=== PATIENT | female | born 2000 | race Hispanic/Latino ===

== ENCOUNTER → 2023-09-27 | Emergency (ER) | payer OTHER ==
--- NOTE | 2023-09-27 18:50 | ER ---
Nurse's Notes [facility] Name: Cathy Wall Age: 23 yrs Sex: Female : 2000 Arrival Date: 09/27/2023 Time: 18:25 Bed IW3 Private MD: Diagnosis: Otitis externa in other diseases classified elsewhere, right ear Presentation: 09/26 18:33 Chief complaint: Patient states: "I poked my right ear with a Q-tip 3 days ago. It's mb9 throbbing, can't eat, and my body aches.". Coronavirus screen: At this time, the client does not indicate any symptoms associated with coronavirus-19. Ebola Screen: No symptoms or risks identified at this time. Initial Sepsis Screen: Does the patient meet any 2 criteria? No. Patient's initial sepsis screen is negative. Does the patient have a suspected source of infection? No. Patient's initial sepsis screen is negative. Risk Assessment: Do you want to hurt yourself or someone else? Patient reports no desire to harm self or others. Onset of symptoms was September 27, 2023. 18:33 Method Of Arrival: Ambulatory mb9 18:33 Acuity: TERENCE 5 mb9 Triage Assessment: 18:35 General: Appears in no apparent distress. Behavior is calm, cooperative. Pain: mb9 Complains of pain in right ear and entire body Quality of pain is described as sharp, throbbing. EENT: Ear canal clear on right ear. Neuro: Penny Agitation-Sedation Scale (RASS): 0 - Alert and Calm Level of Consciousness is awake, alert, obeys commands, Oriented to person, place, time, situation, Appropriate for age. Cardiovascular: Patient's skin is warm and dry. Respiratory: Airway is patent Respiratory effort is even, unlabored, Respiratory pattern is regular, symmetrical. GI: No signs and/or symptoms were reported involving the gastrointestinal system. : No signs and/or symptoms were reported regarding the genitourinary system. Derm: Skin is pink, warm \\T\\ dry. Musculoskeletal: Range of motion: intact in all extremities. Historical: - Allergies: 18:35 PENICILLINS; mb9 - Home Meds: 18:35 None [Active]; mb9 - PMHx: 18:35 None; mb9 - PSHx: 18:35 ACL repair; mb9 - Immunization history:: Adult Immunizations up to date. - Social history:: Smoking status: Reported history of juuling and/or vaping. Screenin:47 [facility] ED Fall Risk Assessment (Adult) History of falling in the last 3 months, vc1 including since admission No falls in past 3 months (0 pts) Confusion or Disorientation No (0 pts) Intoxicated or Sedated No (0 pts) Impaired Gait No (0 pts) Mobility Assist Device Used No (0 pt) Altered Elimination No (0 pt) Score/Fall Risk Level 0 - 2 = Low Risk Oriented to surroundings, Maintained a safe environment, Educated pt \\T\\ family on fall prevention, incl call for assistance when getting out of bed. Abuse screen: Denies threats or abuse. Nutritional screening: No deficits noted. Tuberculosis screening: No symptoms or risk factors identified. Assessment: 19:46 Reassessment: No changes from previously documented assessment. Patient and/or family vc1 updated on plan of care and expected duration. Pain level reassessed. Patient is alert, oriented x 3, equal unlabored respirations, skin warm/dry/pink. Vital Signs: 18:33 BP 142 / 74; Pulse 95; Resp 18; Temp 98; Pulse Ox 100% on R/A; Weight 91.17 kg; Height mb9 5 ft. 4 in. ; Pain 7/10; 19:54 BP 125 / 89; Pulse 74; Resp 18; Pulse Ox 100% on R/A; mb9 18:33 Body Mass Index 34.50 (91.17 kg, 162.56 cm) mb9 18:33 Pain Scale: Adult mb9 ED Course: 18:31 Patient arrived in ED. mg5 18:33 Arm band placed on. mb9 18:34 Obey Gaytan PA is PHCP. cp 18:34 Obey Poole MD is Attending Physician. cp 18:35 Triage completed. mb9 18:49 Yuliya Grover MD is Referral Physician. cp 19:47 Patient has correct armband on for positive identification. vc1 19:47 No provider procedures requiring assistance completed. Patient did not have IV access vc1 during this emergency room visit. 19:54 Aliza Ramirez, MANASA is Primary Nurse. mb9 Administered Medications: No medications were administered Medication: 19:47 VIS not applicable for this client. vc1 Outcome: 18:49 Discharge ordered by . cp 19:54 Discharged to home ambulatory, mb9 19:54 Condition: stable 19:54 Discharge instructions given to patient, Instructed on discharge instructions, follow up and referral plans. Demonstrated understanding of instructions, follow-up care, medications, Prescriptions given X 2, 19:55 Patient left the ED. vc1 Signatures: Obey Gaytan PA PA cp Calcote, Vanessa, RN RN vc1 Aliza Ramirez RN RN mb9 Theresa Hickey mg5 Corrections: (The following items were deleted from the chart) 19:54 18:33 Acuity: TERENCE 4 mb9 mb9
[2023-09-27 20:06] VITALS: BP 125/89; TEMP 98; O2SAT 100
--- NOTE | 2023-09-28 19:55 | EDPHYS ---
Physician Documentation [facility] Name: Cathy Wall Age: 23 yrs Sex: Female : 2000 Arrival Date: 09/27/2023 Time: 18:25 Bed IW3 Private MD: ED Physician Obey Poole HPI: 09/26 18:40 This 23 yrs old Female presents to ER via Ambulatory with complaints of Ear cp Pain. 18:40 The patient presents with pain, that is acute, tenderness. The complaints affect the cp right ear. Onset: The symptoms/episode began/occurred 3 day(s) ago. Associated signs and symptoms: Pertinent positives: body aches. 18:40 Patient reports accidentally sticking q-tip too far into ear. cp Historical: - Allergies: 18:35 PENICILLINS; mb9 - Home Meds: 18:35 None [Active]; mb9 - PMHx: 18:35 None; mb9 - PSHx: 18:35 ACL repair; mb9 - Immunization history:: Adult Immunizations up to date. - Social history:: Smoking status: Reported history of juuling and/or vaping. ROS: 18:45 Constitutional: Positive for body aches, Negative for chills, fever, poor PO intake, cp 18:45 Eyes: Negative for injury, pain, redness, and discharge, cp 18:45 ENT: Positive for ear pain, Negative for drainage from ear(s), sore throat, difficulty swallowing, difficulty handling secretions, 18:45 Respiratory: Negative for cough, shortness of breath, wheezing, 18:45 Abdomen/GI: Negative for abdominal pain, vomiting, diarrhea, constipation, 18:45 Neuro: Negative for altered mental status, dizziness, headache, weakness, 18:45 All other systems are negative, Exam: 18:45 Head/Face: Normocephalic, atraumatic. cp 18:45 Constitutional: The patient appears in no acute distress, alert, awake, non-toxic, well developed, well nourished, 18:45 Eyes: Periorbital structures: appear normal, Conjunctiva: normal, no exudate, no injection, Sclera: no appreciated abnormality, Lids and lashes: appear normal, bilaterally, 18:45 ENT: External ear(s): pain with movement, that is moderate, of the right ear canal, Ear canal(s): purulent discharge, in the right canal, mild, swelling, that is moderate, of the right canal, TM's: not visable, discharge, swellling, Examination of the other ear shows no obvious abnormality, Mouth: Lips: moist, Oral mucosa: pink and intact, moist, Posterior pharynx: Airway: no evidence of obstruction, patent, 18:45 Neck: ROM/movement: is normal, is supple, without pain, no range of motions limitations, 18:45 Chest/axilla: Inspection: normal, 18:45 Cardiovascular: Rate: normal, 18:45 Respiratory: the patient does not display signs of respiratory distress, Respirations: normal, no use of accessory muscles, no retractions, labored breathing, is not present, Breath sounds: are clear throughout, no decreased breath sounds, no stridor, no wheezing, 18:45 Abdomen/GI: Exam negative for discomfort, distension, guarding, 18:45 Skin: no rash present. Vital Signs: 18:33 BP 142 / 74; Pulse 95; Resp 18; Temp 98; Pulse Ox 100% on R/A; Weight 91.17 kg; Height mb9 5 ft. 4 in. ; Pain 7/10; 19:54 BP 125 / 89; Pulse 74; Resp 18; Pulse Ox 100% on R/A; mb9 18:33 Body Mass Index 34.50 (91.17 kg, 162.56 cm) mb9 18:33 Pain Scale: Adult mb9 MDM: 18:34 Patient medically screened. cp 18:40 Differential diagnosis: otitis media, otitis externa, ruptured TM, foreign body, acute cp otalgia, cerumen impaction, barotrauma . 18:48 Data reviewed: vital signs, nurses notes, and as a result, I will discharge patient. cp 18:48 Counseling: I had a detailed discussion with the patient and/or guardian regarding the cp historical points, exam findings, and any diagnostic results supporting the discharge/admit diagnosis, to return to the emergency department if symptoms worsen or persist or if there are any questions or concerns that arise at home. Administered Medications: No medications were administered Disposition Summary: 09/27/23 18:49 Discharge Ordered Notes: Location: Home cp Problem: new cp Symptoms: have improved cp Condition: Stable cp Diagnosis - Otitis externa in other diseases classified elsewhere, right ear cp Followup: cp - With: Yuliya Grover MD - When: 2 - 3 days - Reason: Recheck today's complaints Discharge Instructions: - Discharge Summary Sheet cp - Otitis Externa cp Forms: - Medication Reconciliation Form cp - Thank You Letter cp - Antibiotic Education cp - Prescription Opioid Use cp - Patient Portal Instructions cp - Leadership Thank You Letter cp Prescriptions: - Ibuprofen 800 mg Oral Tablet - take 1 tablet ORAL route every 8 hours As needed take with food; 30 tablet; cp Refills: 0, Product Selection Permitted - Ciprodex 0.3-0.1 % Otic drops, suspension - instill 4 drops OTIC route every 12 hours for 7 days , for ears ONLY; 1 unit; cp Refills: 0, Product Selection Permitted Signatures: Obey Gaytan PA PA cp Breneman, Mary Beth, RN RN mb9
== END ==
LOC: ER 18:25
DX: H60.8X1 Other otitis externa, right ear (principal); Z88.0 Allergy status to penicillin
CPT/HCPCS: 99283

== ENCOUNTER 2023-10-13 16:59 | Emergency (ER) | payer OTHER ==
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
[2023-10-13 19:07] LABS: Specific Gravity 1.023 (1.005-1.030)
[2023-10-13 19:17] LABS: Specific Gravity 1.023 (1.005-1.030); Sqamous Epithelial 20-50 /HPF (None Seen); Urine Bacteria >50 /HPF (<20); Urine Bilirubin NEGATIVE (Negative); Urine Blood Trace (Negative); Urine Clarity Extremely Turbid (Clear); Urine Color Yellow (Yellow); Urine Culture Reflex Order NOT NEEDED; Urine Glucose NEGATIVE (Negative); Urine Ketones NEGATIVE (Negative); Urine Micro Reflex YN NO BILL MICROSCOPIC; Urine Mucus 4+ /HPF (None Seen); Urine Nitrite 2+ (Negative); Urine Protein 1+ (Negative); Urine Urobilinogen Normal (Normal); Urine WBC >50 /HPF (<5); Urine pH 7.5 (5.0-7.0)
[2023-10-13] MEDS ORDERED: CEFTRIAXONE 1000 MG/VIAL ONE (19:58)
[2023-10-13] MEDS ORDERED: LIDOCAINE 1% MPF 5 ML VIAL ONE (19:58)
[2023-10-13] MEDS ORDERED: DOXYCYCLINE 100 MG CAP PO ONE (19:58)
[2023-10-13] MEDS ORDERED: AZITHROMYCIN 250 MG TAB ONE (19:59)
[2023-10-14 03:34] VITALS: BP 121/78; TEMP 97.8; O2SAT 100
== END 2023-10-13 21:01 | disposition home or self-care (01) ==
LOC: ER 16:59
DX: Z04.71 Encounter for examination and observation following alleged adult physical abuse (principal); H11.32 Conjunctival hemorrhage, left eye; S00.83XA Contusion of other part of head, initial encounter; M25.552 Pain in left hip
CPT/HCPCS: 81001; 81025; 70486; 76377; 73502; 96372; 99284; J2001; J0696

== ENCOUNTER 2024-07-10 13:58 | Emergency (ER) | payer BC, OTHER ==
--- OUTSIDE RECORDS SUMMARY | 2024-07-10 14:02 | XMS REPORT | Continuity of Care Document ---
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 Aryan [facility] HB ABO GROUPING 2024-06-23 23:07:00 Aryan Obey Silva [facility] RHO (D) IMMUNE GLOBULIN 2024-06-23 23:07:00 Lucille Reddy [facility] HIV 1/2 AG-AB WITH REFLEX 2024-06-23 23:07:00 Obey Baeza [facility] SYPHILIS IGG/IGM 2024-06-23 23:07:00 Aryan Obey Mccarthy [facility] POCT URINALYSIS W/O SPECIFIC GRAVITY 2024-06-18 20:06:00 Alondra Cardoza [facility] POCT URINALYSIS W/O SPECIFIC GRAVITY 2024-06-11 19:53:00 Alondra Cardoza [facility] POCT URINALYSIS W/O SPECIFIC GRAVITY 2024-06-04 20:40:00 Alondra Cardoza [facility] POCT URINALYSIS W/O SPECIFIC GRAVITY 2024-05-28 20:53:00 Alondra Cardoza [facility] SECOND AND THIRD TRIMESTER ULTRASOUND 2024-05-28 19:31:00 Alondra Cardoza [facility] RSV, BIVALENT, PROTEIN SUBUNIT RSVPREF, DILUENT RECONSTITUTED, 0.5 ML, PF, (ABRYSVO) 2024-05-13 20:45:29 Alondra Cardoza [facility] POCT URINALYSIS W/O SPECIFIC GRAVITY 2024-05-13 20:29:00 Alondra Cardoza [facility] POCT URINALYSIS W/O SPECIFIC GRAVITY 2024-04-29 21:20:00 Alondra Cardoza [facility] POCT URINALYSIS W/O SPECIFIC GRAVITY 2024-04-15 21:15:00 Alondra Cardoza [facility] TDAP VACCINE, >11 YRS, IM 2024-04-02 18:13:49 Alondra Cardoza [facility] FLU VACC (), 6 MO-64 YRS, .5ML, IM, TIV (FLUCELVAX) 2024-04-02 18:13:49 Alondra Cardoza [facility] POCT URINALYSIS W/O SPECIFIC GRAVITY 2024-04-02 17:56:00 Alondra Cardoza [facility] POCT URINALYSIS W/O SPECIFIC GRAVITY 2024-03-12 18:09:00 Alondra Cardoza [facility] POCT URINALYSIS W/O SPECIFIC GRAVITY 2023-10-29 19:49:00 Toribio Vaz [facility] POCT TEST 2023-10-29 19:48:00 Guillermo Vaz i [facility] Encounters Start Date/Time End Date/Time Encounter Type Admission Type Attending [facility] Facility Care Department Encounter ID Source 2024-07-06 14:58:00 2024-07-08 18:16:00 Inpatient P ERICK KOHLI, ERICK [facility] MEKHI [id number] [facility] 2024-07-06 14:58:00 2024-07-08 18:16:00 Hospital Encounter KongCharu ontiveros Rocael Erick Zebgabrielle [facility] ([facility]) 1.2.840.114 350.1.13.10 4.2.7.2.[id number] [facility] 2024-07-07 02:25:00 2024-07-07 04:03:00 Surgery Erick Kohli Annpriti [facility] ([facility]) 1.2.840.114 350.1.13.10 4.2.7.2.[id number] [facility] 2024-07-03 10:30:00 2024-07-03 11:16:21 Outpatient R ALONDRA CARDOZA [facility] [id number] [facility] 2024-07-03 10:30:00 2024-07-03 11:16:21 Nurse Visit [facility] Nurse Vst, Fp Nrpt Pills Class Alondra Cardoza [facility] Nurse Vst, Fp Nrpt Pills Class [facility] PHOSPHORUS PROCESSING SUPERVISOR [facility] MATERNAL & CHILD [facility] 1.2.840.114 350.1.13.10 4.2.7.2.[id number] [facility] 2024-06-23 16:12:00 2024-06-28 12:46:00 Inpatient P JUNO DIXON [facility] [id number] [facility] 2024-06-23 16:12:00 2024-06-28 12:46:00 Hospital Encounter Obey BaezaUrsulais Telly [facility] ([facility]) 1.2.840.114 350.1.13.10 4.2.7.2.[id number] [facility] 2024-06-25 18:50:00 2024-06-25 20:45:00 Surgery Garygabriel Jenn [facility] ([facility]) 1.2.840.114 350.1.13.10 4.2.7.2.[id number] [facility] 2024-06-24 15:55:00 2024-06-25 16:16:00 Anesthesia Event Bhaskar Grace Husong [facility] ([facility]) 1.2.840.114 350.1.13.10 4.2.7.2.[id number] [facility] 2024-06-22 00:00:00 2024-06-24 12:49:03 Refill Alondra Cardoza [facility] PHOSPHORUS PROCESSING SUPERVISOR [facility] MATERNAL & CHILD [facility] 1.20.114 350.1.13.10 4.2.7.2.[id number] [facility] 2024-06-18 13:45:00 2024-06-18 14:30:15 Outpatient R ALONDRA CARDOZA [facility] [id number] [facility] 2024-06-18 13:45:00 2024-06-18 14:30:15 Routine Visit Alondra Cardoza [facility] PHOSPHORUS PROCESSING SUPERVISOR [facility] MATERNAL & CHILD [facility] 1.2840.114 350.1.13.10 4.2.7.2.[id number] [facility] 2024-06-11 14:00:00 2024-06-11 14:25:29 Outpatient R ALONDRA CARDOZA [facility] [id number] [facility] 2024-06-11 14:00:00 2024-06-11 14:15:00 Routine Visit Alondra Cardoza [facility] PHOSPHORUS PROCESSING SUPERVISOR [facility] & CHILD [facility] 1.2.840.114 350.1.13.10 4.2.7.2.[id number] [facility] 2024-06-04 13:45:00 2024-06-04 14:29:16 Outpatient R NAYELI PENN [facility] [id number] [facility] 2024-06-04 13:45:00 2024-06-04 14:29:16 Routine Visit 2, [facility] Temp Provider Alondra Cardoza Josephine 2, [facility] Temp Provider [facility] PHOSPHORUS PROCESSING SUPERVISOR [facility] MATERNAL & CHILD [facility] 1.2.840.114 350.1.13.10 4.2.7.2.[id number] [facility] 2024-06-03 00:00:00 2024-06-03 17:56:31 Nurse Triage Yusra Reina Melissa N [facility] ([facility]) 1.2.840.114 350.1.13.10 4.2.7.2.[id number] [facility] 2024-05-29 00:00:00 2024-05-29 07:03:13 Abstract Alondra Cardoza [facility] PHOSPHORUS PROCESSING SUPERVISOR [facility] & CHILD [facility] 1.2.840.114 350.1.13.10 4.2.7.2.[id number] [facility] 2024-05-28 14:45:00 2024-05-28 15:55:03 Routine Visit Alondra Cardoza [facility] PHOSPHORUS PROCESSING SUPERVISOR [facility] MATERNAL & CHILD [facility] 1.840.114 350.1.13.10 4.2.7.2.[id number] [facility] 2024-05-28 13:30:00 2024-05-28 13:31:45 Outpatient R ELIO FABIANRAQUELMINA HERNANDEZ [facility] [id number] [facility] 2024-05-28 13:30:00 2024-05-28 13:31:45 Hose Seamer Visit 1, [facility] Room Mina Greenwood [facility] PHOSPHORUS PROCESSING SUPERVISOR [facility] MATERNAL & CHILD [facility] 1.840.114 350.1.13.10 4.2.7.2.[id number] [facility] 2024-05-23 14:30:00 2024-05-23 14:30:00 Outpatient R [facility] [id number] [facility] 2024-05-13 14:00:00 2024-05-13 15:02:51 Outpatient R ALONDRA CARDOZA [facility] [id number] [facility] 2024-05-13 14:00:00 2024-05-13 15:02:51 Routine Visit Alondra Cardoza [facility] PHOSPHORUS PROCESSING SUPERVISOR [facility] MATERNAL & CHILD [facility] 1.840.114 350.1.13.10 4.2.7.2.[id number] [facility] 2024-04-29 16:15:00 2024-04-29 16:50:46 Outpatient R ALONDRA CARDOZA [facility] [id number] [facility] 2024-04-29 16:15:00 2024-04-29 16:30:00 Routine Visit Alondra Cardoza [facility] PHOSPHORUS PROCESSING SUPERVISOR [facility] MATERNAL & CHILD [facility] 1.840.114 350.1.13.10 4.2.7.2.[id number] [facility] 2024-04-15 16:15:00 2024-04-15 16:37:49 Routine Visit Alondra Cardoza [facility] PHOSPHORUS PROCESSING SUPERVISOR [facility] & CHILD [facility] 1..840.114 350.1.13.10 4.2.7.2.[id number] [facility] 2024-04-15 16:15:00 2024-04-15 16:37:49 Outpatient R ALONDRA CARDOZA [facility] [id number] [facility] 2024-04-10 00:00:00 2024-04-10 16:32:49 Abstract Floresita Ricci [facility] PHOSPHORUS PROCESSING SUPERVISOR [facility] & CHILD [facility] 1..840.114 350.1.13.10 4.2.7.2.[id number] [facility] 2024-04-02 12:45:00 2024-04-02 14:23:26 Outpatient R ALONDRA CARDOZA [facility] [id number] [facility] 2024-04-02 12:45:00 2024-04-02 14:23:26 Routine Visit Alondra Cardoza [facility] PHOSPHORUS PROCESSING SUPERVISOR [facility] & CHILD [facility] 1..840.114 350.1.13.10 4.2.7.2.[id number] [facility] 2024-03-12 13:00:00 2024-03-12 14:25:59 Outpatient R ALONDRA CARDOZA [facility] [id number] [facility] 2024-03-12 13:00:00 2024-03-12 14:25:59 Routine Visit Alondra Cardoza [facility] 1..840.114 350.1.13.10 4.2.7.2.[id number] [facility] 2023-11-26 16:15:00 2023-11-26 16:15:00 Outpatient R TORIBIO VAZ KRISTI [facility] [id number] [facility] 2023-10-29 14:15:00 2023-10-29 16:33:25 Initial Visit Toribio Vaz [facility] PHOSPHORUS PROCESSING SUPERVISOR [facility]ERNAL [facility] 1.2.840.114 350.1.13.10 4.2.7.2.[id number] [facility] 2023-10-29 14:15:00 2023-10-29 16:33:25 Outpatient R TORIBIO VAZ KRISTI [facility] [id number] [facility] Results Test Description Test Time Test Comments Results Resul t Comments Source CT Abdomen pelvis w contrast 2024-06-10 0 13:22:30 EXAM: CT ABDOMEN PELVIS W CONTRAST HISTORY: 24 years-old Female: Abdominal abscess/infection suspected,concern for collection, S/P on 06/25/2024 ? TECHNIQUE: Contiguous axial imaging from the level of the lung basesthrough the proximal thighs was performed with intravenous contrast.Coronal and sagittal reconstructions were obtained. COMPARISON: None FINDINGS: LOWER THORAX: The lung bases are clear. No pleural or pericardial effusion. LIVER AND BILIARY: Mild hepatomegaly. ?The liver is normal in contour. Nofocal hepatic lesion is seen. Layer of hyperdense material is seen in thedependent portion of the gallbladder. No intra or extrahepatic biliaryductal dilation is visualized. PANCREAS: Normal morphology and enhancement. No ductal dilation or massesare visualized. SPLEEN: The spleen appears unremarkable. ADRENAL GLANDS: No adrenal masses are seen. KIDNEYS, URETERS, AND BLADDER: ?Normal renal size, morphology, andenhancement. ?No solid masses. ?No stones or hydronephrosis. Foci ofintraluminal gas is seen in the urinary bladder.. GI TRACT, PERITONEUM AND PELVIS: No dilation or bowel wall thickening isseen. The appendix appears unremarkable. No intra-abdominal free air isvisualized. A 4.6 x 3.8 x 2 cm collection with wall enhancement is seen below theumbilicus underneath rectus abdominis muscles at midline with surroundingfatty stranding likely representing an abscess. Additionally, a 2.9 x 3.8 x3 cm collection with surrounding fatty stranding is seen in the rightadnexa. Small amount of free fluid is seen adjacent to the right adnexa. VESSELS: Unremarkable. LYMPH NODES: No lymphadenopathy. BONES AND SOFT TISSUES: No aggressive osseous lesion. Periumbilical fatstranding and mild fluid collection is noted. [facility] CT Abdomen pelvis w contrast 2024-06-10 0 13:22:30 EXAM: CT ABDOMEN PELVIS W CONTRAST HISTORY: 24 years-old Female: Abdominal abscess/infection suspected,concern for collection, S/P on 06/25/2024 ? TECHNIQUE: Contiguous axial imaging from the level of the lung basesthrough the proximal thighs was performed with intravenous contrast.Coronal and sagittal reconstructions were obtained. COMPARISON: None FINDINGS: LOWER THORAX: The lung bases are clear. No pleural or pericardial effusion. LIVER AND BILIARY: Mild hepatomegaly. ?The liver is normal in contour. Nofocal hepatic lesion is seen. Layer of hyperdense material is seen in thedependent portion of the gallbladder. No intra or extrahepatic biliaryductal dilation is visualized. PANCREAS: Normal morphology and enhancement. No ductal dilation or massesare visualized. SPLEEN: The spleen appears unremarkable. ADRENAL GLANDS: No adrenal masses are seen. KIDNEYS, URETERS, AND BLADDER: ?Normal renal size, morphology, andenhancement. ?No solid masses. ?No stones or hydronephrosis. Foci ofintraluminal gas is seen in the urinary bladder.. GI TRACT, PERITONEUM AND PELVIS: No dilation or bowel wall thickening isseen. The appendix appears unremarkable. No intra-abdominal free air isvisualized. A 4.6 x 3.8 x 2 cm collection with wall enhancement is seen below theumbilicus underneath rectus abdominis muscles at midline with surroundingfatty stranding likely representing an abscess. Additionally, a 2.9 x 3.8 x3 cm collection with surrounding fatty stranding is seen in the rightadnexa. Small amount of free fluid is seen adjacent to the right adnexa. VESSELS: Unremarkable. LYMPH NODES: No lymphadenopathy. BONES AND SOFT TISSUES: No aggressive osseous lesion. Periumbilical fatstranding and mild fluid collection is noted. [id number]-07 08:20:08* Test Item Value Reference Range Interpretation Comme nts NA (test code = 2513187201) 138 mmol/L 135-145 K (test code = 9601062345) 4.6 mmol/L 3.5-5.0 CL (test code = 9596521878) 105 mmol/L 98-108 CO2 TOTAL (test code = 5650876455) 26 mmol/L 23-31 AGAP (test code = 5278402021) 7 2-16 BUN (test code = 1255993665) 18 mg/dL 7-23 GLUCOSE (test code = 6471361188) 76 mg/dL 70-110 CREATININE (test code = 2160-0) 0.54 mg/dL 0.50-1.04 TOTAL BILI (test code = 6139956965) 0.6 mg/dL 0.1-1.1 CALCIUM (test code = 4722985611) 9.1 mg/dL 8.6-10.6 T PROTEIN (test code = 2473799313) 7.0 g/dL 6.3-8.2 ALBUMIN (test code = 5881156277) 3.5 g/dL 3.5-5.0 ALK PHOS (test code = 7007537173) 147 U/L 34-122 H ALTv (test code = 1742-6) 43 U/L 5-35 H AST(SGOT) (test code = 8576161327) 34 U/L 13-40 eGFR (test code = 54239-2) 132.0 mL/min/1.73m2 CKD-EPI eGFR (2020). Assuming creatinine has been stable day-to-day for at least three months, the eGFR indicates Category G1 (>= 90 mL/min/1.73 m2) Lab Interpretation (test code = 20204-1) [facility]normal [facility] [id number] 08:03:00* Test Item Value Reference Range Interpretation Comme nts ABO & RH (test code = 20) O POSITIVE IAT (test code = 1185) Negative [facility] [id number] 08:03:00* Test Item Value Reference Range Interpretation Comme nts ABO & RH (test code = 20) O POSITIVE IAT (test code = 1185) Negative [facility] with [id number] 02:30:52* Test Item Value Reference Range Interpretation Comme nts WBC (test code = 6690-2) 15.05 4.30-11.10 H RBC (test code = 789-8) 3.06 3.93-5.25 L HGB (test code = 718-7) 7.9 g/dL 11.6-15.0 L HCT (test code = 4544-3) 24.3 % 35.7-45.2 L MCV (test code = 787-2) 79.4 fL 80.6-95.5 L MCH (test code = 785-6) 25.8 pg 25.9-32.8 L MCHC (test code = 786-4) 32.5 g/dL 31.6-35.1 RDW-SD (test code = 58584-1) 44.8 fL 39.0-49.9 RDW-CV (test code = 788-0) 15.4 % 12.0-15.5 PLT (test code = 777-3) 417 166-358 H MPV (test code = 42778-7) 8.9 fL 9.5-12.9 L NRBC/100 WBC (test code = 3299215298) 0.1 0.0-10.0 NRBC x10^3 (test code = 7217784292) 0.02 See_Comment [Automated message] The system which generated this result transmitted reference range: 10*3/?L. The reference range was not used to interpret this result as normal/abnormal. GRAN MAT (NEUT) % (test code = 770-8) 77.5 % IMM GRAN % (test code = 6522015298) 2.20 % LYMPH % (test code = 736-9) 13.6 % MONO % (test code = 5905-5) 5.1 % EOS % (test code = 713-8) 1.2 % BASO % (test code = 706-2) 0.4 % GRAN MAT x10^3(ANC) (test code = 1407172142) 11.66 10*3/uL 1.88-7.09 H IMM GRAN x10^3 (test code = 0526187475) 0.33 10*3/uL 0.00-0.06 H LYMPH x10^3 (test code = 731-0) 2.05 10*3/uL 1.32-3.29 MONO x10^3 (test code = 742-7) 0.77 10*3/uL 0.33-0.92 EOS x10^3 (test code = 711-2) 0.18 10*3/uL 0.03-0.39 BASO x10^3 (test code = 704-7) 0.06 10*3/uL 0.01-0.07 Lab Interpretation (test code = 15517-4) Abnormal [facility] with Fwha1331-02-25 02:30:52* Test Item Value Reference Range Interpretation Comme nts WBC (test code = 6690-2) 15.05 4.30-11.10 H RBC (test code = 789-8) 3.06 3.93-5.25 L HGB (test code = 718-7) 7.9 g/dL 11.6-15.0 L HCT (test code = 4544-3) 24.3 % 35.7-45.2 L MCV (test code = 787-2) 79.4 fL 80.6-95.5 L MCH (test code = 785-6) 25.8 pg 25.9-32.8 L MCHC (test code = 786-4) 32.5 g/dL 31.6-35.1 RDW-SD (test code = 41922-1) 44.8 fL 39.0-49.9 RDW-CV (test code = 788-0) 15.4 % 12.0-15.5 PLT (test code = 777-3) 417 166-358 H MPV (test code = 90861-9) 8.9 fL 9.5-12.9 L NRBC/100 WBC (test code = 9656504069) 0.1 0.0-10.0 NRBC x10^3 (test code = 3062024553) 0.02 See_Comment [Automated message] The system which generated this result transmitted reference range: 10*3/?L. The reference range was not used to interpret this result as normal/abnormal. GRAN MAT (NEUT) % (test code = 770-8) 77.5 % IMM GRAN % (test code = 0698677568) 2.20 % LYMPH % (test code = 736-9) 13.6 % MONO % (test code = 5905-5) 5.1 % EOS % (test code = 713-8) 1.2 % BASO % (test code = 706-2) 0.4 % GRAN MAT x10^3(ANC) (test code = 0518935361) 11.66 10*3/uL 1.88-7.09 H IMM GRAN x10^3 (test code = 0313915711) 0.33 10*3/uL 0.00-0.06 H LYMPH x10^3 (test code = 731-0) 2.05 10*3/uL 1.32-3.29 MONO x10^3 (test code = 742-7) 0.77 10*3/uL 0.33-0.92 EOS x10^3 (test code = 711-2) 0.18 10*3/uL 0.03-0.39 BASO x10^3 (test code = 704-7) 0.06 10*3/uL 0.01-0.07 Lab Interpretation (test code = 04522-6) [facility]* Test Item Value Reference Range Interpretation Comme [facility] CREATININE (test code = 2160-0) 0.58 mg/dL 0.50-1.04 eGFR (test code = 72934-5) 129.8 mL/min/1.73m2 CKD-EPI eGFR (20 21). Assuming creatinine has been stable day-to-day for at least three months, the eGFR indicates Category G1 (>= 90 mL/min/1.73 m2) [facility] 00:29:45* Test Item Value Reference Range Interpretation Comme [facility] CREATININE (test code = 2160-0) 0.58 mg/dL 0.50-1.04 eGFR (test code = 16384-5) 129.8 mL/min/1.73m2 CKD-EPI eGFR (20 21). Assuming creatinine has been stable day-to-day for at least three months, the eGFR indicates Category G1 (>= 90 mL/min/1.73 m2) [facility] with Vbdekxulcnfb6292-73-39 11:41:47* Test Item Value Reference Range Interpretation Comme nts WBC (test code = 6690-2) 19.68 4.30-11.10 H RBC (test code = 789-8) 3.48 3.93-5.25 L HGB (test code = 718-7) 9.7 g/dL 11.6-15.0 L HCT (test code = 4544-3) 28.9 % 35.7-45.2 L MCV (test code = 787-2) 83.0 fL 80.6-95.5 MCH (test code = 785-6) 27.9 pg 25.9-32.8 MCHC (test code = 786-4) 33.6 g/dL 31.6-35.1 RDW-SD (test code = 35055-9) 46.1 fL 39.0-49.9 RDW-CV (test code = 788-0) 15.4 % 12.0-15.5 PLT (test code = 777-3) 171 166-358 MPV (test code = 74904-5) 11.5 fL 9.5-12.9 NRBC/100 WBC (test code = 3398646380) 0.0 0.0-10.0 NRBC x10^3 (test code = 8399405162) See_Comment [Automated message] The system which generated this result transmitted reference range: 10*3/?L. The reference range was not used to interpret this result as normal/abnormal. GRAN MAT (NEUT) % (test code = 770-8) 83.7 % IMM GRAN % (test code = 5168343013) 0.60 % LYMPH % (test code = 736-9) 9.6 % MONO % (test code = 5905-5) 5.8 % EOS % (test code = 713-8) 0.1 % BASO % (test code = 706-2) 0.2 % GRAN MAT x10^3(ANC) (test code = 7160750748) 16.48 10*3/uL 1.88-7.09 H IMM GRAN x10^3 (test code = 7999662996) 0.12 10*3/uL 0.00-0.06 H LYMPH x10^3 (test code = 731-0) 1.88 10*3/uL 1.32-3.29 MONO x10^3 (test code = 742-7) 1.14 10*3/uL 0.33-0.92 H EOS x10^3 (test code = 711-2) 0.03-0.39 L BASO x10^3 (test code = 704-7) 0.04 10*3/uL 0.01-0.07 BANDS (test code = 8402781115) MARKED INCREASED A Lab Interpretation (test code = 10041-9) Abnormal [facility] with Vslghgztpgjk3092-12-73 11:41:47* Test Item Value Reference Range Interpretation Comme nts WBC (test code = 6690-2) 19.68 4.30-11.10 H RBC (test code = 789-8) 3.48 3.93-5.25 L HGB (test code = 718-7) 9.7 g/dL 11.6-15.0 L HCT (test code = 4544-3) 28.9 % 35.7-45.2 L MCV (test code = 787-2) 83.0 fL 80.6-95.5 MCH (test code = 785-6) 27.9 pg 25.9-32.8 MCHC (test code = 786-4) 33.6 g/dL 31.6-35.1 RDW-SD (test code = 47512-7) 46.1 fL 39.0-49.9 RDW-CV (test code = 788-0) 15.4 % 12.0-15.5 PLT (test code = 777-3) 171 166-358 MPV (test code = 95222-6) 11.5 fL 9.5-12.9 NRBC/100 WBC (test code = 2894348958) 0.0 0.0-10.0 NRBC x10^3 (test code = 3692409544) See_Comment [Automated message] The system which generated this result transmitted reference range: 10*3/?L. The reference range was not used to interpret this result as normal/abnormal. GRAN MAT (NEUT) % (test code = 770-8) 83.7 % IMM GRAN % (test code = 7970893308) 0.60 % LYMPH % (test code = 736-9) 9.6 % MONO % (test code = 5905-5) 5.8 % EOS % (test code = 713-8) 0.1 % BASO % (test code = 706-2) 0.2 % GRAN MAT x10^3(ANC) (test code = 4717305882) 16.48 10*3/uL 1.88-7.09 H IMM GRAN x10^3 (test code = 1828439779) 0.12 10*3/uL 0.00-0.06 H LYMPH x10^3 (test code = 731-0) 1.88 10*3/uL 1.32-3.29 MONO x10^3 (test code = 742-7) 1.14 10*3/uL 0.33-0.92 H EOS x10^3 (test code = 711-2) 0.03-0.39 L BASO x10^3 (test code = 704-7) 0.04 10*3/uL 0.01-0.07 BANDS (test code = 3240718282) MARKED INCREASED A Lab Interpretation (test code = 03699-2) Abnormal [facility] (D) IMMUNE QPPAHXSK2633-48-67 09:51:15* Test Item Value Reference Range Interpretation Comme nts RHIG CANDIDATE? (test code = 5188) No- see comment Patient is not a candidate for RhIg- Patient is Rh Positive.Performed at [facility] Laboratory Services - [facility] Blood [address] Free: [phone] No. [id number] [facility] (D) IMMUNE GSQDAPVI4248-77-91 09:51:15* Test Item Value Reference Range Interpretation Comme nts RHIG CANDIDATE? (test code = 5188) No- see comment Patient is not a candidate for RhIg- Patient is Rh Positive.Performed at [facility] Laboratory Services - [facility] Blood [place] [id number] Free: [phone] No. [id number] [facility] Ytt3656-08-34 00:13:34* Test Item Value Reference Range Interpretation Comme nts VENOUS BASE EXCESS, CORD (te st code = 6247805310) -4.9 mEq/L VENOUS PH, CORD (test code = 9460799861) 7.29 7.25-7.45 VENOUS PC02, CORD (test code = 9307063047) 46 27-49 VENOUS PO2, CORD (test code = 7584241648) 22 17-41 VENOUS BICARBONATE, CORD (te st code = 6529895390) 22 - [facility] Wrc8610-67-08 00:13:34* Test Item Value Reference Range Interpretation Comme nts VENOUS BASE EXCESS, CORD (te st code = 0537183389) -4.9 mEq/L VENOUS PH, CORD (test code = 9400706126) 7.29 7.25-7.45 VENOUS PC02, CORD (test code = 2190017964) 46 27-49 VENOUS PO2, CORD (test code = 7460036292) 22 17-41 VENOUS BICARBONATE, CORD (te st code = 8905143457) 22 - [facility] Cll1717-61-62 00:10:51* Test Item Value Reference Range Interpretation Comme nts BASE EXCESS, CORD (test code = 1193682019) -6.0 mEq/L AC PH, CORD (BEAKER) (test c ode = 9991050789) 7.27 7.18-7.38 PC02, CORD (test code = 8966068687) 47 32-66 PO2, CORD (test code = 4019205987) 29 10-30 BICARBONATE, CORD (test code = 6964321607) 17- [facility] Ycv6504-53-95 00:10:51* Test Item Value Reference Range Interpretation Comme nts BASE EXCESS, CORD (test code = 7080393377) -6.0 mEq/L AC PH, CORD (BEAKER) (test c ode = 7147573612) 7.27 7.18-7.38 PC02, CORD (test code = 8605452597) 47 32-66 PO2, CORD (test code = 1118817086) 29 10-30 BICARBONATE, CORD (test code = 9394161432) 21 [facility]- [facility] Hxikt3282-92-05 22:14:00 Anup Burris MD ? ? 06/24/2024 ?4:28 PM Central Neuraxial Block Date/Time: 06/24/2024 4:14 PM Performed by: Anup Burris MDAuthorized by: Jc Abrams MD ?Patient Location: OBReason for Block: Labor analgesiaStaff: ? ?Resident/CHUCKING MACHINE OPERATOR: Anup Burris MD ?Performed by: resident/CRNAPreanesthetic Checklist: anesthesia consent, IV checked, monitors and equipment checked, patient identified, pre-op evaluation, risks and benefits explained and timeout performedProcedure: ?Type of Neuraxial: Epidural ?Epidural Description: 1st attempt ? Sterility Prep cap, drape, gloves, hand hygiene and mask ? ?Sedation Level no sedation ?Patient Position: sitting ?Prep: Betadine ? ?Monitoring: NIBP, heart rate, heart rate / toco and continuous pulse ox ?Location: lumbar (1-5) ?Lumbar: L2-L3 ?Approach: midline ? ?Technique: CHENG saline ?Guidance with: landmark technique}Epidural/Spinal Needlesand/or Catheter: ?Epidural/Spinal Kit: BBraun ?Needle Type: Tuohy ?Needle Gauge: 17 G ?Needle Length: 3.5 in (8.89 cm) ?Needle Insertion Depth: 6 ?Catheter Type: multiport ? ?Catheter Size: 19 G ? ?Catheter at Skin Depth: 11 ?Test Dose: lidocaine 1.5% with epinephrine 1-to-200,000 and negative ? ?Catheter Securement Method: clear occlusive dressing, liquid medical adhesive and surgical tapeAssessment: ?Block Outcome: a full evaluation is pending ?[facility] Syphilis IgG/IdO5167-46-68 16:47:16* Test Item Value Reference Range Interpretation Comme nts Syphilis IgG/IgM (test code = 59947-1) Nonreactive Nonreactive Syphilis Serology Interpretation (test code = 44704-1) No serologic evidence of syphilis. If recent exposure is suspected, retest in 2 to 4 weeks. STANISLAV (test code = STANISLAV) ? [facility]/GoR7480-53-60 16:47:16* Test Item Value Reference Range Interpretation Comme nts Syphilis IgG/IgM (test code = 71728-3) Nonreactive Nonreactive Syphilis Serology Interpretation (test code = 81324-3) No serologic evidence of syphilis. If recent exposure is suspected, retest in 2 to 4 weeks. STANISLAV (test code = STANISLAV) ? [facility] 1/2 Ag-Ab with Nqjjmy3438-19-16 02:11:52* Test Item Value Reference Range Interpretation Comme nts HIV Semi-quantitative (test code = 51782-9) 0.13 Negative STANISLAV (test code = STANISLAV) Non-reactive for HIV-1 antigen and HIV-1/HIV-2 antibodies. ?No laboratory evidence of HIV infection. ?Repeat in 2-4 weeks if acute HIV infection is suspected. [facility] 1/2 Ag-Ab with Mtxzgs0200-38-68 02:11:52* Test Item Value Reference Range Interpretation Comme nts HIV Semi-quantitative (test code = 45473-7) 0.13 Negative STANISLAV (test code = STANISLAV) Non-reactive for HIV-1 antigen and HIV-1/HIV-2 antibodies. ?No laboratory evidence of HIV infection. ?Repeat in 2-4 weeks if acute HIV infection is suspected. [facility] Ochajlx6038-94-46 00:27:02 * Test Item Value Reference Range Interpretation Comme nts HBsAg Semi-Quantitative (selena t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
--- NOTE | 2024-07-10 18:07 | EDPHYS ---
Physician Documentation [facility] Name: Cathy Wall Age: 24 yrs Sex: Female : 2000 Arrival Date: 07/10/2024 Time: 13:58 Bed 12 Private MD: ED Physician Obey Poole HPI: 07/10 17:59 This 24 yrs old Female presents to ER via Ambulatory with complaints of Wound tiffani Check, machine cleaning. 17:59 Patient presents to ED for recheck of: laceration. The affected area is on the abdomen. tiffani Previous treatment: WOUND VAC. Progress: The patient reports excellent improvement in the affected area. There has been resolution, improvement, or non-development of any drainage, fever, pain, redness or swelling. The patient has not experienced similar symptoms in the past. 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 - Infectious Disease History:: Denies. - Social history:: Smoking status: Patient denies any tobacco usage or history of. ROS: 18:00 Constitutional: Negative for fever, chills, and weight loss, Eyes: Negative for injury, tiffani pain, redness, and discharge, ENT: Negative for injury, pain, and discharge, Neck: Negative for injury, pain, and swelling, Cardiovascular: Negative for chest pain, palpitations, and edema, Respiratory: Negative for shortness of breath, cough, wheezing, and pleuritic chest pain, Back: Negative for injury and pain, : Negative for injury, bleeding, discharge, and swelling, MS/Extremity: Negative for injury and deformity, Skin: Negative for injury, rash, and discoloration, Neuro: Negative for headache, weakness, numbness, tingling, and seizure, Psych: Negative for depression, anxiety, suicide ideation, homicidal ideation, and hallucinations, Allergy/Immunology: Negative for hives, rash, and allergies, Endocrine: Negative for neck swelling, polydipsia, polyuria, polyphagia, and marked weight changes, Hematologic/Lymphatic: Negative for swollen nodes, abnormal bleeding, and unusual bruising, 18:00 Abdomen/GI: Positive for abdominal pain, NEEDS WOUND VAC CHANGED AND REPLACED, Exam: 18:00 Constitutional: This is a well developed, well nourished patient who is awake, alert, tiffani and in no acute distress. Head/Face: Normocephalic, atraumatic. Eyes: Pupils equal round and reactive to light, extra-ocular motions intact. Lids and lashes normal. Conjunctiva and sclera are non-icteric and not injected. Cornea within normal limits. Periorbital areas with no swelling, redness, or edema. ENT: Nares patent. No nasal discharge, no septal abnormalities noted. Tympanic membranes are normal and external auditory canals are clear. Oropharynx with no redness, swelling, or masses, exudates, or evidence of obstruction, uvula midline. Mucous membranes moist. Neck: Trachea midline, no thyromegaly or masses palpated, and no cervical lymphadenopathy. Supple, full range of motion without nuchal rigidity, or vertebral point tenderness. No Meningismus. Chest/axilla: Normal chest wall appearance and motion. Nontender with no deformity. No lesions are appreciated. Cardiovascular: Regular rate and rhythm with a normal S1 and S2. No gallops, murmurs, or rubs. Normal PMI, no JVD. No pulse deficits. Respiratory: Lungs have equal breath sounds bilaterally, clear to auscultation and percussion. No rales, rhonchi or wheezes noted. No increased work of breathing, no retractions or nasal flaring. Skin: Warm, dry with normal turgor. Normal color with no rashes, no lesions, and no evidence of cellulitis. MS/ Extremity: Pulses equal, no cyanosis. Neurovascular intact. Full, normal range of motion., bilateral aka Neuro: Awake and alert, GCS 15, oriented to person, place, time, and situation. Cranial nerves II-XII grossly intact. Motor strength 5/5 in all extremities. Sensory grossly intact. Cerebellar exam normal. Normal gait. Psych: Awake, alert, with orientation to person, place and time. Behavior, mood, and affect are within normal limits. 18:00 Abdomen/GI: Inspection: abdomen appears normal, Bowel sounds: normal, Palpation: abdomen is soft and non-tender, in the C-SEC SITE WITH WOUND VAC, Vital Signs: 14:11 BP 123 / 68; Pulse 85; Resp 18; Temp 97.8; Pulse Ox 100% ; Weight 104.33 kg; Height 5 ap3 ft. 4 in. ; 14:11 Body Mass Index 39.48 (104.33 kg, 162.56 cm) ap3 MDM: 14:18 Medical Screening Exam initiated tiffani 18:04 Differential diagnosis: WOUND VAC, EVAL. Data reviewed: vital signs, nurses notes. tiffani Consideration of Admission/Observation Escalation of care including admission/observation considered. I considered the following discharge prescriptions or medication management in the emergency department Medications were administered in the Emergency Department. See MAR. Test considered but Not performed: Labs: NO LABS. Historians other than the Patient: PT WELL INFORMED. Care significantly affected by the following chronic conditions: NONE, 2 DAYS C SEC. 07/10 14:18 Order name: Misc. Order: wound care, vac eval tiffani Administered Medications: No medications were administered Disposition Summary: 07/10/24 18:06 Discharge Ordered Notes: Location: Home tiffani Problem: new tiffani Symptoms: have improved tiffani Condition: Stable tiffani Diagnosis - Encounter for change or removal of nonsurgical wound dressing - WOUND VAC tiffani Followup: tiffani - With: Private Physician - When: 48 Hours - Reason: Recheck today's complaints, Continuance of care, Re-evaluation by your physician Discharge Instructions: - Discharge Summary Sheet tiffani - Delayed Wound Closure tiffani - How to Change Your Wound Dressing tiffani - Laceration Care, Adult tiffani - Wound Dehiscence tiffani - Wound Dehiscence, [id number] tiffani Forms: - Medication Reconciliation Form tiffani - Antibiotic Education tiffani - Prescription Opioid Use tiffani - Patient Portal Instructions tiffani - Leadership Thank You Letter tiffani Signatures: Obey Poole MD MD cha Prokisch, Amanda RN RN ap3
--- NOTE | 2024-07-10 18:07 | ER ---
Nurse's Notes [facility] Name: Cathy Wall Age: 24 yrs Sex: Female : 2000 Arrival Date: 07/10/2024 Time: 13:58 Bed 12 Private MD: Diagnosis: Encounter for change or removal of nonsurgical wound dressing-WOUND VAC Presentation: 07/10 14:11 Chief complaint: Patient states: she had a on 06/25/24 and ended up with an ap3 infection. patient states a wound vac was placed 07/07/24, and was told she was set up for home health after discharge 07/08/24. home health did not arrive to do wound care. patient is here to receive wound care and get her wound vac cleaned. Coronavirus screen: At this time, the client does not indicate any symptoms associated with coronavirus-19. Ebola Screen: No symptoms or risks identified at this time. Initial Sepsis Screen: Does the patient meet any 2 criteria? No. Patient's initial sepsis screen is negative. Does the patient have a suspected source of infection? No. Patient's initial sepsis screen is negative. Risk Assessment: Do you want to hurt yourself or someone else? Patient reports no desire to harm self or others. Onset of symptoms is unknown. 14:11 Method Of Arrival: Ambulatory ap3 14:11 Acuity: TERENCE 3 ap3 Triage Assessment: 14:15 General: Appears in no apparent distress. Behavior is calm, cooperative, appropriate ap3 for age. Pain: Complains of pain in pelvis. Neuro: Level of Consciousness is awake, alert, obeys commands, Oriented to person, place, time, situation. Cardiovascular: Patient's skin is warm and dry. Respiratory: Airway is patent Respiratory effort is even, unlabored, Respiratory pattern is regular, symmetrical. Derm: Wound noted pelvis Other: wound vac in place. 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 - Infectious Disease History:: Denies. - Social history:: Smoking status: Patient denies any tobacco usage or history of. Screenin:15 [facility] ED Fall Risk Assessment (Adult) History of falling in the last 3 months, ap3 including since admission No falls in past 3 months (0 pts) Confusion or Disorientation No (0 pts) Intoxicated or Sedated No (0 pts) Impaired Gait No (0 pts) Mobility Assist Device Used No (0 pt) Altered Elimination No (0 pt) Score/Fall Risk Level 0 - 2 = Low Risk Oriented to surroundings, Maintained a safe environment, Educated pt \T\ family on fall prevention, incl call for assistance when getting out of bed, Assessed \T\ reinforced patient's understanding of fall precautions, Hourly rounding (assess needs \T\ fall precautionary measures) done, Used ambulatory aids as needed (educated on \T\ assisted with), Used gait belt as appropriate. Abuse screen: Denies threats or abuse. Nutritional screening: No deficits noted. Tuberculosis screening: No symptoms or risk factors identified. 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 db 17:33 Reassessment: Patient appears in no apparent distress at this time. Patient and/or db family updated on plan of care and expected duration. Pain level reassessed. Patient is alert, oriented x 3, equal unlabored respirations, skin warm/dry/pink. General: Appears in no apparent distress. comfortable, Behavior is calm, cooperative. Neuro: Level of Consciousness is awake, alert, obeys commands, Oriented to person, place, time, situation. Respiratory: Airway is patent Respiratory effort is even, unlabored, Respiratory pattern is regular, symmetrical. Derm: Wound noted pelvis. Vital Signs: 14:11 BP 123 / 68; Pulse 85; Resp 18; Temp 97.8; Pulse Ox 100% ; Weight 104.33 kg; Height 5 ap3 ft. 4 in. ; 14:11 Body Mass Index 39.48 (104.33 kg, 162.56 cm) ap3 ED Course: 14:01 Patient arrived in ED. im 14:14 Triage completed. ap3 14:16 Arm band placed on right wrist. ap3 14:18 Obey Poole MD is Attending Physician. tiffani 15:54 Katlyn Knight, RN is Primary Nurse. db Administered Medications: No medications were administered Outcome: 18:06 Discharge ordered by . tiffani 18:35 Patient left the ED. iw Signatures: Obey Poole MD MD cha Williams, Irene, RN RN iw Lynn Cabrera, RN RN ap3 Katlyn Knight, RN RN db Donna Oneill
[2024-07-10 23:19] VITALS: BP 123/68; TEMP 97.8; O2SAT 100
== END 2024-07-10 18:35 | disposition home or self-care (01) ==
LOC: ER 13:58
DX: Z48.00 Encounter for change or removal of nonsurgical wound dressing (principal); Z88.0 Allergy status to penicillin
CPT/HCPCS: 99281